=== PATIENT | male | born 1970 | race African-American/Black ===

== ENCOUNTER 2018-01-14 11:49 | Emergency (ER) | payer BC, OTHER ==
[~2018-01-14] VITALS: Ht 188 cm; Wt 125.2 kg
[~2018-01-14 11:49] MED LIST: Z.0.NO CURRENT MEDS
[2018-01-14 12:00] VITALS: BP 128/69; PULSE 83; RESP 20; TEMP 98.6; O2SAT 97
[2018-01-14] MEDS ORDERED: CLIN300C5 PO (13:08)
--- NOTE | 2018-01-14 13:09 | PD ---
HPI Chief Complaint: Bite or Sting Time Seen by Provider: 11:53 Travel History International Travel<30 days: No Contact w/Intl Traveler<30days: No Traveled to known affect area: No History of Present Illness HPI 47-year-old male here with right upper extremity pain and swelling. He reports he was bit 3 times by an insect in the right upper extremity and afterwards developed increasing redness and itching. Denies fever or chills. No altered sensation in the arm. Symptom severity is moderate. Slightly improved with OTC Benadryl. No aggravating factors. Denies any history of IV drug abuse. PFSH Past Medical History Medical History: Denies Significant Hx Diminished Hearing: No Tetanus Vaccination: < 5 Years Influenza Vaccination: No Past Surgical History Surgical History: No Previous Surgery Other Surgery: Yes (calcium deposit removed from rt leg) Social History Alcohol Use: Yes (social) Tobacco Use: No Substance Use: No Allergies-Medications (Allergen,Severity, Reaction): Coded Allergies: No Known Allergies (Verified Adverse Reaction, Unknown, 01/14/18) Reported Meds & Prescriptions Reported Meds & Active Scripts Active Reported No Current Meds (Miscellaneous Medication) Misc Review of Systems Except as stated in HPI: all other systems reviewed are Neg General / Constitutional: No: Fever Eyes: No: Visual changes HENT: No: Headaches Cardiovascular: No: Chest Pain or Discomfort Respiratory: No: Shortness of Breath Gastrointestinal: No: Abdominal Pain Genitourinary: No: Dysuria Musculoskeletal: No: Pain Neurologic: No: Weakness Physical Exam Narrative GENERAL: Alert and well-appearing 47-year-old male SKIN: Warm and dry. 3 insect bites on the right upper extremity with surrounding erythema extending from the dorsal aspect of the right hand and into the mid forearm. No fluctuance, induration, lymphangitis. HEAD: Normocephalic. EYES: No scleral icterus. No injection or drainage. NECK: Supple, trachea midline. No JVD or lymphadenopathy. CARDIOVASCULAR: Regular rate and rhythm without murmurs, gallops, or rubs. RESPIRATORY: Breath sounds equal bilaterally. No accessory muscle use. GASTROINTESTINAL: Abdomen soft, non-tender, nondistended. MUSCULOSKELETAL: No cyanosis. Right upper extremity: mild swelling and notable erythema to the dorsal aspect of the right hand extending into the forearm. Normal sensation. Full range of motion. 2+ pulses. Brisk cap refill. BACK: Nontender without obvious deformity. No CVA tenderness. Data Data Last Documented VS Vital Signs Date Time Temp Pulse Resp B/P (MAP) Pulse Ox O2 Delivery O2 Flow Rate FiO2 01/14/18 12:00 98.6 83 20 128/69 (88) 97 MDM Medical Decision Making Medical Screen Exam Complete: Yes Emergency Medical Condition: Yes Differential Diagnosis Insect bites, abscess, cellulitis Narrative Course 47-year-old male with cellulitis to the right upper extremity. He is nontoxic appearing. Vital signs are stable. Will be started on clindamycin. Instructed to follow-up with his primary doctor or return if symptoms worsen. Diagnosis Primary Impression: Cellulitis of right upper extremity Additional Impression: Insect bites Qualified Codes: W57.XXXA - Bitten or stung by nonvenomous insect and other nonvenomous arthropods, initial encounter Referrals: Primary Care Physician Additional Instructions: Antibiotics as directed. Compress to the area. Benadryl as needed for itching. Follow-up with primary doctor. Return if he develop new or worsening symptoms. Scripts Clindamycin (Clindamycin) 300 Mg Cap 300 MG PO Q6H for Infection for 10 Days, #40 CAP 0 Refills Prov: Cheryl Bolaños 01/14/18 Disposition: 01 DISCHARGE HOME Condition: Stable Cheryl Bolaños Jan 14, 2018 13:09
== END 2018-01-14 13:31 | disposition home or self-care (01) ==
LOC: PHEFT 11:49
DX: L03.113 Cellulitis of right upper limb (principal); W57.XXXA Bitten or stung by nonvenomous insect and other nonvenomous arthropods, initial encounter
CPT/HCPCS: 99283